=== PATIENT | male | born 1995 | race Two or more races ===

== ENCOUNTER 2021-08-19 21:07 | Emergency (ER) | payer BC ==
[~2021-08-19] VITALS: Ht 167.6 cm; Wt 95.0 kg
[2021-08-19 22:00] LABS: BASO # 0.1 x10^3/uL (0.0-0.2); BASO % 1 % (0-3); EOS # 0.1 x10^3/uL (0.0-0.7); EOS % 1 % (0-3); HEMATOCRIT 44.1 % (39.0-53.0); HEMOGLOBIN 15.5 g/dL (13.0-17.5); LYMPH # 2.6 x10^3/uL (1.0-4.8); LYMPH % 27 % (24-48); MEAN CORPUSCULAR HEMOGLOBIN 29 pg (25-35); MEAN CORPUSCULAR HGB CONC 35 g/dL (31-37); MEAN CORPUSCULAR VOLUME 83 fL (79-100); MONO # 0.8 x10^3/uL (0.0-1.1); MONO % 8 % (0-9); NEUT # 6.3 x10^3/uL (1.8-7.7); NEUT % 64 % (31-73); PLATELET COUNT 298 x10^3/uL (140-400); RED CELL DISTRIBUTION WIDTH 12.8 % (11.5-14.5); WHITE BLOOD COUNT 9.9 x10^3/uL (4.0-11.0)
--- NOTE | 2021-08-19 22:01 | PHYS DOC ---
Past Medical History Past Surgical History: No Surgical History General Adult EDM: Chief Complaint: SHORTNESS OF BREATH HPI: HPI: Patient is a 25 year old male with history of GERD and asthma who presents with recurrent episodes of anxiety, lightheadedness, chest tightness, hyperventilation, tingling in his arms. This episode started approximately an hour ago. He had an extensive work-up which they state included CT head, chest, and abdomen. He has been seeing ENT for deviated septum and is scheduled for surgery. He has met with his primary care doctor, and has been prescribed sertraline, but has not began this medication yet. It was just prescribed yesterday. They also gave a prescription for hydroxyzine for the event of a panic attack, which he took today and he did not feel that it improved his symptoms. He now feels that his anxiety is improved, chest discomfort has improved, but he still has some residual lightheadedness. States that he has had very poor appetite and has lost 20-30 pounds in the last few months. States that he has had some blood work in this work-up, but is unsure of what exactly. Review of Systems: Review of Systems: Constitutional: Denies fever. Reports chills. [] Eyes: Denies change in visual acuity. [] HENT: Denies nasal congestion or sore throat. [] Respiratory: Denies cough or shortness of breath. [] Cardiovascular: Denies chest pain or edema. [] GI: Reports nausea and epigastric abdominal pain. bloody stools or diarrhea. [] : Denies dysuria. [] Musculoskeletal: Denies back pain or joint pain. [] Integument: Denies rash. [] Neurologic: Denies headache, focal weakness. Reports bilateral upper extremity numbness/tingling. [] Endocrine: Denies polyuria or polydipsia. [] Lymphatic: Denies swollen glands. [] Psychiatric: Reports anxiety. [] Heart Score: C/O Chest Pain: Yes HEART Score for Chest Pain: HEART Score for Chest Pain Response (Comments) Value History Slighlty/Non-Suspicious 0 ECG Normal 0 Age < 45 0 Risk Factors No Risk Factors 0 Total 0 Risk Factors: Risk Factors: DM, Current or recent (<one month) smoker, HTN, HLP, family history of CAD, obesity. Risk Scores: Score 0 - 3: 2.5% MACE over next 6 weeks - Discharge Home Score 4 - 6: 20.3% MACE over next 6 weeks - Admit for Clinical Observation Score 7 - 10: 72.7% MACE over next 6 weeks - Early Invasive Strategies Allergies: Allergies: Allergies Coded Allergies Type Severity Reaction Last Updated Verified No Known Drug Allergies 08/19/21 No Physical Exam: PE: Constitutional: Well developed, well nourished, no acute distress, non-toxic appearance. [] HENT: Normocephalic, atraumatic, bilateral external ears normal, oropharynx moist, no oral exudates, nose normal. [] Eyes: PERRLA, EOMI, conjunctiva normal, no discharge. [] Neck: Normal range of motion, no tenderness, supple, no stridor. [] Cardiovascular:Heart rate regular rhythm, no murmur [] Lungs & Thorax: Bilateral breath sounds clear to auscultation [] Abdomen: Bowel sounds normal, soft, no tenderness, no masses, no pulsatile masses. [] Skin: Warm, dry, no erythema, no rash. [] Back: No tenderness, no CVA tenderness. [] Extremities: No tenderness, no cyanosis, no clubbing, ROM intact, no edema. [] Neurologic: Alert, oriented to person, place, time. Face is symmetric. Speech is normal. Cranial nerves III-XII intact. 5/5 strength in bilateral upper and lower extremities in all dermatomes. No dysmetria with [id number] or [id number]-dj-[id number] testing. Gait is stable. Psychologic: Anxious affect , judgement normal, mood normal. [] Current Patient Data: Vital Signs: Vital Signs Date Time Temp Pulse Resp B/P (MAP) Pulse Ox O2 Delivery O2 Flow Rate FiO2 08/19/21 21:17 98.2 85 18 163/74 (103) 100 Room Air 98.2 EKG: EKG: []Sinus rhythm. Rate 69. Normal axis. T wave inversion in lead III. UT interval normal. QRS 104. QTc 434. No significant ST elevation or ST depression. Radiology/Procedures: Radiology/Procedures: [facility] [address] [place] [address] IMAGING REPORT Signed PATIENT: GEM LAYSTEVENACCOUNT: [id number] : 1995 LOCATION: ER AGE: 25 SEX: M EXAM STATUS: REG ER ORD. PHYSICIAN: NATASHA TRAMMELL MD REASON: RUQ/epigastric pain, elevated bili. eval for common bile duct obstruction PROCEDURE: ABDOMEN LTD EXAM: ULTRASOUND ABDOMEN LIMITED CLINICAL HISTORY: Reason: RUQ/epigastric pain, elevated bili. eval for common bile duct obstruction / Spl. Instructions: / History: COMPARISON: None available. TECHNIQUE: Limited ultrasound examination of the right upper quadrant of the abdomen was performed. FINDINGS: The pancreas is mostly obscured by overlying bowel gas.. Liver: 11.8 cm in length. Increased hepatic echogenicity relative to the right kidney consistent with hepatic steatosis. There are no focal liver lesions. Flow seen within the portal veins. Biliary: No cholelithiasis. No wall thickening or pericholecystic fluid. There is no pain with direct transducer pressure over the gallbladder. Common bile duct measures 0.2 cm. Right Kidney: 10.3 cm in bipolar length. Normal renal cortical echotexture and thickness. No focal renal lesion, shadowing renal calculus or hydronephrosis. Visualized portions of the abdominal aorta and inferior vena cava are unremarkable. There is no free fluid in the subhepatic space. IMPRESSION: 1. Increased hepatic echogenicity relative to the right kidney consistent with hepatic steatosis. 2. Gallbladder is normal. No biliary dilatation. Electronically signed by: Gómez Thompson MD (08/20/2021 12:27 AM) [facility] DICTATED and SIGNED BY: GÓMEZ THOMPSON MD DATE: 08/20/21 [id number] [] Course & Med Decision Making: Course & Med Decision Making Pertinent Labs and Imaging studies reviewed. (See chart for details) Patient 25-year-old male who presents with recurrent episodes of anxiety, nausea, chest discomfort, lightheadedness. He has been seen for this many times before and has had extensive imaging work- up. On arrival is afebrile, hemodynamically stable. Vital signs normal. Well-appearing examination with intact neurologic examination. Symptoms are slowly improving. This seems most consistent with recurrent anxiety attacks. We will give a small dose of IV Ativan here. He has been prescribed sertraline from his PCP, but has not began treatment. PERC negative, no PE work up indicated. We will check electrolytes, LFTs, cell counts, lipase, EKG for any underlying organic etiology for his anxiety, poor appetite, and epigastric discomfort. 2200 Labs show hypokalemia to 2.6. Symptoms certainly could be due to symptomatic hypokalemia. By history, this seems most likely due to malnutrition/poor appetite. No history of significant GI losses/diarrhea. Repletion with 40 M EQ p.o., and 20 M EQ IV ordered. Labs also show mildly elevated bilirubin 1.8. Right upper quadrant ultrasound showed hepatic steatosis, without evidence of biliary disease or obstructive pathology. We will recheck labs following electrolyte repletion to determine most appropriate disposition. 0055 Repeat potassium 4.2. Safe for discharge at this time. We will follow up with PCP for repeat lab testing. 0530 Darius Disclaimer: Darius Disclaimer: This electronic medical record was generated, in whole or in part, using a voice recognition dictation system. Departure Departure Impression: Primary Impression: Hypokalemia Disposition: HOME / SELF CARE / HOMELESS Condition: STABLE Referrals: NO PCP (PCP) Patient Instructions: Hypokalemia Additional Instructions: Call your PCP to schedule follow-up appointment. They will need to repeat your potassium lab to ensure this is not a chronic problem. Your potassium is low. We gave you IV and oral potassium to correct this and it went back to a normal level. Please try to eat potassium rich foods. NATASHA TRAMMELL MD Aug 19, 2021 22:01
[2021-08-19 22:17] LABS: ALBUMIN 4.4 g/dL (3.4-5.0); ALBUMIN/GLOBULIN RATIO 1.1 (1.0-1.7); CALCIUM 9.2 mg/dL (8.5-10.1); CREATININE 1.1 mg/dL (0.7-1.3); GFR 80.9; TOTAL BILIRUBIN 1.8 mg/dL (0.2-1.0); TOTAL PROTEIN 8.5 g/dL (6.4-8.2)
[2021-08-19 22:22] LABS: POTASSIUM 2.6 mmol/L (3.5-5.1)
[2021-08-19] MEDS ORDERED: POTASSIUM CHLORIDE 20MEQ 100 ML IV ONE (22:30)
[2021-08-19] MEDS ORDERED: POTASSIUM CHLORIDE 20 MEQ TABLET.ER. PO ONE (22:30)
[2021-08-19] MEDS ORDERED: IV RINGERS,LACTATED 500ML 500 ML IV ONE (22:30)
--- NOTE | 2021-08-19 22:33 | EKG ---
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
[2021-08-19] MEDS: POTASSIUM CHLORIDE 10MEQ 100 ML IV SCH (23:08)
--- NOTE | 2021-08-20 00:30 | RAD ---
EXAM: ULTRASOUND ABDOMEN LIMITED CLINICAL HISTORY: Reason: RUQ/epigastric pain, elevated bili. eval for common bile duct obstruction / Spl. Instructions: / History: COMPARISON: None available. TECHNIQUE: Limited ultrasound examination of the right upper quadrant of the abdomen was performed. FINDINGS: The pancreas is mostly obscured by overlying bowel gas.. Liver: 11.8 cm in length. Increased hepatic echogenicity relative to the right kidney consistent wi th hepatic steatosis. There are no focal liver lesions. Flow seen within the portal veins. Biliary: No cholelithiasis. No wall thickening or pericholecystic fluid. There is no pain with dire ct transducer pressure over the gallbladder. Common bile duct measures 0.2 cm. Right Kidney: 10.3 cm in bipolar length. Normal renal cortical echotexture and thickness. No focal re nal lesion, shadowing renal calculus or hydronephrosis. Visualized portions of the abdominal aorta and inferior vena cava are unremarkable. There is no free fluid in the subhepatic space. IMPRESSION: 1. Increased hepatic echogenicity relative to the right kidney consistent with hepatic steatosis. 2. Gallbladder is normal. No biliary dilatation. Electronically signed by: Gómez Thompson MD (08/20/2021 12:27 AM) [facility]
[2021-08-20] MEDS: POTASSIUM CHLORIDE 10MEQ 100 ML IV SCH (01:06)
[2021-08-20 04:50] LABS: CALCIUM 8.9 mg/dL (8.5-10.1); CREATININE 0.8 mg/dL (0.7-1.3); GFR 116.9; POTASSIUM 4.2 mmol/L (3.5-5.1)
[2021-08-20 06:07] VITALS: BP 104/61
[2021-08-20] MEDS ORDERED: POTA10TA6 PO (06:34)
== END 2021-08-20 06:43 | disposition home or self-care (01) ==
LOC: ER 21:07
DX: E87.6 Hypokalemia (principal); R42 Dizziness and giddiness; R07.89 Other chest pain; F41.9 Anxiety disorder, unspecified
CPT/HCPCS: 36415; 76705; 80048; 80053; 83690; 83735; 84443; 84484; 85025; 93005; 96361; 96365; 96366; 96375; 99285; J2060; J3480; J7120